=== PATIENT | female | born 1970 | race African-American/Black ===

== ENCOUNTER 2017-01-27 23:31 | Emergency (ER) | payer SELFPAY ==
[~2017-01-27] VITALS: Ht 167.6 cm; Wt 83.0 kg
[~2017-01-27 23:31] MED LIST: ACETAMINOPHEN-1 EAC1 ORAL; ALBUTEROL SULF8.5 GM INH; IBUPROFEN600 MG ORAL; TAMIFLU75 MG ORAL
[2017-01-27 23:45] VITALS: BP 138/90
[2017-01-27] MEDS ORDERED: Morphine Sulfate 4mg/ml Inj IVP ONE (23:45)
--- NOTE | 2017-01-27 23:48 | Emergency Room Report ---
History of Present Illness General Chief Complaint: Chest Pain Source: Patient Present Illness HPI Is a 46-year-old female with no past medical history. She presents with chief complaint of epigastric pain. Onset this afternoon. Multiple episode vomiting. No radiation. Unable to keep anything down. No diarrhea. Sharp cramping pain. This occur after eating lunch. Never had this problem before. No exertional component. No diaphoresis. No shortness of breath. Allergies: Coded Allergies: No Known Allergies (Unverified , 05/26/15) Patient History Past Medical History: none, see triage record, old chart reviewed Pertinent Family History: none Social History: Denies: smoking Last Menstrual Period: LAST MONTH Now: No Immunizations: other Reviewed Nursing Documentation: PMH: Agreed, PSxH: Agreed Nursing Documentation-PMH Hx Asthma: Yes Review of Systems Eye: Denies: eye pain, blurred vision ENT: Denies: ear pain, nose congestion, throat swelling Respiratory: Denies: cough, shortness of breath Cardiovascular: Reports: chest pain, Denies: palpitations Gastrointestinal: Denies: abdominal pain, diarrhea, nausea, vomiting Musculoskeletal: Denies: back pain, joint pain Skin: Denies: rash Neurological: Denies: headache, numbness Endocrine: Denies: increased thirst, increased urine Hematologic/Lymphatic: Denies: easy bruising All Other Systems: negative except mentioned in HPI Physical Exam Vital Signs Date Time Temp Pulse Resp B/P (MAP) Pulse Ox O2 Delivery O2 Flow Rate FiO2 01/27/17 23:41 99.0 76 29 138/90 96 Room Air vitals normal Sp02 EP Interpretation: reviewed, normal General Appearance: well appearing, no apparent distress, alert Head: normocephalic, atraumatic Eyes: bilateral eye PERRL, bilateral eye EOMI ENT: hearing grossly normal, normal pharynx Neck: full range of motion, supple, no meningismus Respiratory: chest non-tender, lungs clear, normal breath sounds Cardiovascular #1: regular rate, rhythm, no murmur Gastrointestinal: non tender, no mass, no organomegaly, no bruit, non-distended , decreased bowel sounds Musculoskeletal: back normal, gait/station normal, normal range of motion Psychiatric: mood/affect normal Skin: warm/dry Medical Decision Making Diagnostic Impression: Primary Impression: Abdominal pain Qualified Codes: R10.13 - Epigastric pain Additional Impressions: Vomiting Qualified Codes: R11.2 - Nausea with vomiting, unspecified UTI (urinary tract infection) Qualified Codes: N30.00 - Acute cystitis without hematuria ER Course Patient with epigastric pain and vomiting. No evidence of ACS, PE, dissection. Most likely a viral gastroenteritis. Could be food poisoning. No evidence of acute abdomen. No evidence of her upper quadrant pain. Doubt gallstone. Lab Results Impression labs unremarkable EKG Diagnostic Results EKG Time: 23:48 Rate: normal Rhythm: NSR ST Segments: no acute changes Rhythm Strip Diag. Results Rhythm Strip Time: 23:47 EP Interpretation: yes Rate: 67 Rhythm: NSR, no PVC's, no ectopy Chest X-Ray Diagnostic Results Chest X-Ray Diagnostic Results : Chest X-Ray Ordered: Yes # of Views/Limited/Complete: 1 View Indication: Chest Pain EP Interpretation: Yes Interpretation: no consolidation, no effusion, no pneumothorax Impression: No acute disease Electronically Signed by: Electronically signed by Ravindra Thomas MD Last Vital Signs Date Time Temp Pulse Resp B/P (MAP) Pulse Ox O2 Delivery O2 Flow Rate FiO2 01/27/17 23:41 99.0 76 29 138/90 96 Room Air Status: improved Disposition: HOME, SELF-CARE Condition: Stable Scripts Ondansetron Odt* (ZOFRAN ODT*) 4 Mg Tab.rapdis 4 MG ORAL Q6H Y for Nausea & Vomiting, #5 TAB 0 Refills Prov: RAVINDRA THOMAS M.D. 01/28/17 Nitrofurantoin Monohyd/M-Cryst (Nitrofurantoin [place]-Mcr 100 mg) 100 Mg Capsule 100 MG ORAL Q12H, #14 CAP Prov: RAVINDRA THOMAS M.D. 01/28/17 Additional Instructions: Followup with your DrFrantz in 2 to 3 days. Return if worse. RAVINDRA THOMAS M.D. Jan 27, 2017 23:48
[2017-01-28 00:09] LABS: BASOPHILS % (AUTO) 1.3 % (0.0-2.0); EOSINOPHILS % (AUTO) 2.1 % (0.0-3.0); LYMPHOCYTES % (AUTO) 34.7 % (20.0-45.0); MEAN CORPUSCULAR HEMOGLOBIN 28.3 PG (27.0-31.0); MEAN CORPUSCULAR HGB CONC 31.4 G/DL (32.0-36.0); MEAN CORPUSCULAR VOLUME 90 FL (80-99); MEAN PLATELET VOLUME 8.8 FL (6.5-10.1); MONOCYTES % (AUTO) 6.6 % (1.0-10.0); NEUTROPHILS % (AUTO) 55.3 % (45.0-75.0); PLATELET COUNT 194 K/UL (150-450); RED BLOOD COUNT 4.96 M/UL (4.20-5.40); RED CELL DISTRIBUTION WIDTH 12.5 % (11.6-14.8); WHITE BLOOD COUNT 6.8 K/UL (4.8-10.8)
[2017-01-28 00:33] LABS: APPEARANCE,URINE SLIGHTLY CLOUDY; KETONES,URINE NEGATIVE (NEGATIVE); LEUKOCYTE ESTERASE ,URINE NEGATIVE (NEGATIVE); NITRITE,URINE POSITIVE (NEGATIVE); PH,URINE 6 (4.5-8.0); PROTEIN,URINE NEGATIVE (NEGATIVE); UROBILINOGEN,URINE NORMAL MG/DL (0.0-1.0)
[2017-01-28 00:42] LABS: ALANINE AMINOTRANSFERASE 13 U/L (12-78); ALBUMIN/GLOBULIN RATIO 0.9 (1.0-2.7); ANION GAP 12 (5-15); ASPARTATE AMINO TRANSFERASE 14 U/L (15-37); CALCIUM 9.6 MG/DL (8.5-10.1); CARBON DIOXIDE 24 MMOL/L (21-32); CHLORIDE 99 MMOL/L (98-107); CKMB < 0.5 NG/ML (0.0-3.6); CREATININE 0.8 MG/DL (0.55-1.30); GLOMERULAR FILTRATION RATE > 60 mL/min (>60); LIPASE 57 U/L (73-393); POTASSIUM 3.3 MMOL/L (3.5-5.1); SODIUM 134 MMOL/L (136-145); TOTAL PROTEIN 8.3 G/DL (6.4-8.2)
[2017-01-28 01:26] LABS: SQUAMOUS EPITHELIAL CELL,UR MODERATE /LPF (NONE/OCC)
[2017-01-28 01:27] LABS: BACTERIA,URINE MANY /HPF
[2017-01-28] MEDS ORDERED: cefTRIAXone 1 GM in NS 55 ML IVPB ONE (01:30)
[2017-01-28 01:45] VITALS: BP 130/80
[2017-01-28] MEDS ORDERED: MACROBID100 MG ORAL (01:54)
[2017-01-28] MEDS ORDERED: ZOFRAN ODT4 MG ORAL (01:54)
[2017-01-28 02:10] VITALS: BP 125/75
--- NOTE | 2017-01-28 12:26 | Diagnostic Imaging Report ---
Indication: Chest pain Technique: One view of the chest Comparison: none Findings: Lungs and pleural spaces are clear. Heart size is normal. Impression: No acute process
--- NOTE | 2017-01-28 22:56 | Cardiology Report ---
APPROVED REPORT EKG Measurement Heart [id number] Normal sinus rhythm Normal ECG
== END 2017-01-28 02:10 | disposition home or self-care (01) ==
LOC: EMR 23:55
DX: R10.13 Epigastric pain (principal); R11.10 Vomiting, unspecified; N39.0 Urinary tract infection, site not specified
CPT/HCPCS: 36415; 71010; 80053; 81003; 81025; 82550; 82553; 83690; 84484; 85025; 87086; 87181; 93005; 96361; 96365; 96375; 99284; J0696; J2270; J2405

== ENCOUNTER 2018-12-01 04:35 | Inpatient (IN) | payer MEDICAID ==
[~2018-12-01] VITALS: Ht 167.6 cm; Wt 81.6 kg
[~2018-12-01 04:35] MED LIST changes: +MACROBID100 MG ORAL; +ZOFRAN ODT4 MG ORAL
[2018-12-01] MEDS ORDERED: Isovue-300 100ml vial INJ PRN (04:45)
[2018-12-01] MEDS ORDERED: Metoclopramide 10mg/2ml Inj IVP ONE (04:45)
--- NOTE | 2018-12-01 04:50 | Emergency Room Report ---
History of Present Illness General Chief Complaint: Abdominal Pain Source: Patient Present Illness HPI 48-year-old female presents with right upper quadrant pain that started 24 hours prior to arrival currently she is been having this ongoing pain for the past month, patient states that it seems to be worse with food alleviated by not eating, she endorses nausea vomiting, she states the pain is sharp in nature moderate severity, lasting hours, no fevers chills cough congestion chest pain shortness of breath. She presents for evaluation Allergies: Coded Allergies: No Known Allergies (Unverified , 05/26/15) Patient History Past Medical History: see triage record Last Menstrual Period: 11/06/18 Now: No Reviewed Nursing Documentation: PMH: Agreed; PSxH: Agreed Nursing Documentation-PMH Past Medical History: No History, Except For Hx Asthma: Yes Review of Systems All Other Systems: negative except mentioned in HPI Physical Exam Vital Signs Date Time Temp Pulse Resp B/P (MAP) Pulse Ox O2 Delivery O2 Flow Rate FiO2 12/01/18 04:36 97.5 73 18 153/91 (111) 96 Room Air Sp02 EP Interpretation: reviewed, normal General Appearance: well appearing, no apparent distress, alert Head: normocephalic, atraumatic Eyes: bilateral eye PERRL, bilateral eye EOMI ENT: uvula midline, moist mucus membranes Neck: supple, thyroid normal, supple/symm/no masses Respiratory: lungs clear, no respiratory distress, no retraction, no accessory muscle use Cardiovascular #1: normal peripheral pulses, regular rate, rhythm, no edema, no gallop, no murmur Gastrointestinal: soft, no guarding, no rebound, tenderness - Tenderness to palpation right upper quadrant Musculoskeletal: normal inspection Neurologic: alert, oriented x3 Psychiatric: mood/affect normal Skin: no rash, warm/dry Medical Decision Making Diagnostic Impression: Primary Impression: Acute cholecystitis ER Course Patient presents with RUQ pain, concerning for biliary colic, vs cholecystitis Patient with thickened gallbladder wall, perichol fluid, + murphys Zosyn started, patient admitted for management for acute cholecystitis Laboratory Tests Test 12/01/18 04:50 White Blood Count 7.3 K/UL (4.8-10.8) Red Blood Count 4.88 M/UL (4.20-5.40) Hemoglobin 14.3 G/DL (12.0-16.0) Hematocrit 43.0 % (37.0-47.0) Mean Corpuscular Volume 88 FL (80-99) Mean Corpuscular Hemoglobin 29.2 PG (27.0-31.0) Mean Corpuscular Hemoglobin Concent 33.2 G/DL (32.0-36.0) Red Cell Distribution Width 12.8 % (11.6-14.8) Platelet Count 204 K/UL (150-450) Mean Platelet Volume 8.9 FL (6.5-10.1) Neutrophils (%) (Auto) 52.2 % (45.0-75.0) Lymphocytes (%) (Auto) 37.3 % (20.0-45.0) Monocytes (%) (Auto) 6.9 % (1.0-10.0) Eosinophils (%) (Auto) 2.4 % (0.0-3.0) Basophils (%) (Auto) 1.1 % (0.0-2.0) Urine Color Yellow Urine Appearance Clear Urine pH 5 (4.5-8.0) Urine Specific [place] 1.030 (1.005-1.035) Urine Protein 1+ (NEGATIVE) H Urine Glucose (UA) Negative (NEGATIVE) Urine Ketones 1+ (NEGATIVE) H Urine Blood 3+ (NEGATIVE) H Urine Nitrite Negative (NEGATIVE) Urine Bilirubin Negative (NEGATIVE) Urine Urobilinogen 1 MG/DL (0.0-1.0) H Urine Leukocyte Esterase Negative (NEGATIVE) Urine RBC 2-4 /HPF (0 - 2) H Urine WBC 0-2 /HPF (0 - 2) Urine Squamous Epithelial Cells Moderate /LPF (NONE/OCC) H Urine Bacteria Few /HPF (NONE) Urine HCG, Qualitative Negative (NEGATIVE) Sodium Level 140 MMOL/L (136-145) Potassium Level 3.3 MMOL/L (3.5-5.1) L Chloride Level 106 MMOL/L (98-107) Carbon Dioxide Level 25 MMOL/L (21-32) Anion Gap 9 mmol/L (5-15) Blood Urea Nitrogen 9 mg/dL (7-18) Creatinine 0.7 MG/DL (0.55-1.30) Estimate Glomerular Filtration Rate > 60 mL/min (>60) Glucose Level 173 MG/DL (74-106) H Calcium Level 9.4 MG/DL (8.5-10.1) Total Bilirubin 0.9 MG/DL (0.2-1.0) Aspartate Amino Transferase (AST) 16 U/L (15-37) Alanine Aminotransferase (ALT) 23 U/L (12-78) Alkaline Phosphatase 57 U/L (46-116) Troponin I 0.000 ng/mL (0.000-0.056) Total Protein 7.8 G/DL (6.4-8.2) Albumin 3.9 G/DL (3.4-5.0) Globulin 3.9 g/dL Albumin/Globulin Ratio 1.0 (1.0-2.7) Lipase 48 U/L (73-393) L Urine Opiates Screen Negative (NEGATIVE) Urine Barbiturates Screen Negative (NEGATIVE) Phencyclidine (PCP) Screen Negative (NEGATIVE) Urine Amphetamines Screen Negative (NEGATIVE) Urine Benzodiazepines Screen Negative (NEGATIVE) Urine Cocaine Screen Negative (NEGATIVE) Urine Marijuana (THC) Screen Negative (NEGATIVE) EKG Diagnostic Results EKG Time: 04:56 EP Interpretation: Sinus bradycardia, rate 58, QTc 418, no acute ST elevations , normal axis Rate: bradycardiac Rhythm: other - Sinus bradycardia ST Segments: no acute changes Rhythm Strip Diag. Results Rhythm Strip Time: 06:52 EP Interpretation: yes Rate: 62 Rhythm: NSR, no PVC's, no ectopy Last Vital Signs Date Time Temp Pulse Resp B/P (MAP) Pulse Ox O2 Delivery O2 Flow Rate FiO2 12/01/18 04:36 97.5 73 18 153/91 (111) 96 Room Air Disposition: ADMITTED INPATIENT Condition: Stable Asim Russell MD Dec 01, 2018 04:50
[2018-12-01 04:55] VITALS: BP 153/91
--- NOTE | 2018-12-01 04:55 | NUR ---
ER Nurse Note: Pt came from home c/o RUQ pain since 11/30. Pt stated she had pain for "a while" but worse yesterday. Pt complans of 10/10 sharp RUQ pain, worse on palpation and worse after eating. Pt actively vomiting at bedside; emesis yellow and clear. Provided ruine; collected all labs and sent to lab. SLIV to RT AC; patent. Will continue to [facility].
[2018-12-01 05:15] LABS: BASOPHILS % (AUTO) 1.1 % (0.0-2.0); EOSINOPHILS % (AUTO) 2.4 % (0.0-3.0); HEMOGLOBIN 14.3 G/DL (12.0-16.0); LYMPHOCYTES % (AUTO) 37.3 % (20.0-45.0); MEAN CORPUSCULAR VOLUME 88 FL (80-99); MONOCYTES % (AUTO) 6.9 % (1.0-10.0); NEUTROPHILS % (AUTO) 52.2 % (45.0-75.0); PLATELET COUNT 204 K/UL (150-450); RED BLOOD COUNT 4.88 M/UL (4.20-5.40); RED CELL DISTRIBUTION WIDTH 12.8 % (11.6-14.8); WHITE BLOOD COUNT 7.3 K/UL (4.8-10.8)
[2018-12-01 05:27] LABS: APPEARANCE,URINE CLEAR; BILIRUBIN, URINE NEGATIVE (NEGATIVE); GLUCOSE, URINE (UA) NEGATIVE (NEGATIVE); KETONES,URINE 1+ (NEGATIVE); LEUKOCYTE ESTERASE ,URINE NEGATIVE (NEGATIVE); NITRITE,URINE NEGATIVE (NEGATIVE); PH,URINE 5 (4.5-8.0); PROTEIN,URINE 1+ (NEGATIVE); UROBILINOGEN,URINE 1 MG/DL (0.0-1.0)
[2018-12-01 05:30] LABS: ANION GAP 9 mmol/L (5-15); BLOOD UREA NITROGEN 9 mg/dL (7-18); CALCIUM 9.4 MG/DL (8.5-10.1); CARBON DIOXIDE 25 MMOL/L (21-32); CHLORIDE 106 MMOL/L (98-107); CREATININE 0.7 MG/DL (0.55-1.30); POTASSIUM 3.3 MMOL/L (3.5-5.1); SODIUM 140 MMOL/L (136-145)
[2018-12-01 05:35] LABS: ALANINE AMINOTRANSFERASE 23 U/L (12-78); ALBUMIN 3.9 G/DL (3.4-5.0); ALKALINE PHOSPHATASE 57 U/L (46-116); ASPARTATE AMINO TRANSFERASE 16 U/L (15-37); BILIRUBIN,TOTAL 0.9 MG/DL (0.2-1.0)
[2018-12-01 05:40] LABS: COLOR,URINE YELLOW
[2018-12-01] MEDS ORDERED: fentaNYL 100 mcg/2 mL IV ONE (05:45)
--- NOTE | 2018-12-01 05:59 | NUR ---
ER Nurse Note: All orders completed per ERMD orders. Pt in ultrasound.
[2018-12-01 06:00] VITALS: BP 110/84
--- NOTE | 2018-12-01 06:42 | NUR ---
ER Nurse Note: Pt came back from US.
[2018-12-01] MEDS ORDERED: Piperacillin/Tazobactam 3.375 GM in NS 110 ML IVPB ONE (06:45)
--- NOTE | 2018-12-01 06:51 | Diagnostic Imaging Report ---
Indication: Abdominal pain x2 months Technique: Holland-scale and duplex images of the upper abdomen were obtained Comparison: Findings: Gallbladder demonstrates gallstones and sludge. There is mild gallbladder wall thickening and trace pericholecystic fluid. Sonographic Bhatt's sign is equivocal. Common bile duct measures 5 mm in diameter. No intrahepatic biliary ductal dilatation. Liver demonstrates normal echogenicity, no focal abnormality. Portal vein and hepatic veins are patent. Pancreas is unremarkable. Spleen is unremarkable. Left kidney measures 11.1 cm in length. Right kidney measures 10.6 cm length. Both kidneys demonstrate normal echogenicity. There is no hydronephrosis. No focal abnormality there is a small cyst in the left upper pole. Non-aneurysmal abdominal aorta . Impression: Cholelithiasis. Gallbladder wall thickening and pericholecystic fluid raise concern for acute cholecystitis. Chronic and clinical findings, consider hepatobiliary nuclear scan if there is high clinical suspicion No other acute or significant abnormality Incidental finding left renal cyst This agrees with the preliminary interpretation [facility].
--- NOTE | 2018-12-01 07:00 | NUR ---
ER Nurse Note: All orders completed per ERMD orders. Pt infusing antibiotic in RT AC. Pt a&ox4, VSS, stable. All safety measures met; will endorse to oncoming shift for continuity of care.
[2018-12-01 07:19] VITALS: BP 137/109
--- NOTE | 2018-12-01 07:22 | NUR ---
ED Nurse Note: resumed care pt awake alert on monitor and her cell phone . boyfriend coming to picker tender her car and belongings.pt denies taking any meds at home or hospitalization in the past 30 days.Awaiting floor bed.
--- NOTE | 2018-12-01 08:10 | NUR ---
ED Nurse Note: called floor for report was told call back in 15 min. er charge informed.
--- NOTE | 2018-12-01 08:29 | NUR ---
NURSE NOTES: received report from ER, THIAGO Berrios. patient will be admitted to [facility] under Marita BALLESTEROS. dx with Cholecystitis.
--- NOTE | 2018-12-01 10:06 | NUR ---
Receptionist/Telephone OperatorOrder Dispatcher 48 Y/O Female from Home CC: Abd pain x 1 hour with N/V SI: Cholecystitis VS: BP: 153/91 HR: 73 RR 18 02 Sat 96% (RA) T: 97.6 NT: UR RBC 2-4 UR Protein 1+ UR Ketones 1+ UR Squamous EPI Moderate Potassium 3.3 Glucose Random 173 Lipase 48 ABD US: The gallbladder is distended with multiple large shadowing stones and sludge. Possible minimal pericholecystic fluid. Negative Bhatt's sign. Findings are equivocal for acute cholecystitis. No hydronephrosis. IS: Reglan 10mg IVP NS 1000ml IV Fentanyl 50mcg IV Zosyn 3.375GM IVPB Admitted to MedSurg MedSurg status DCP: Pending Hospital Stay
--- NOTE | 2018-12-01 10:28 | History & Physical ---
History and Physical History & Physicial seen and examined. Full Dictation completed on 1022 hours Lucero Kirkland MD Dec 01, 2018 10:28
[2018-12-01] MEDS ORDERED: traMADol 50mg tab ORAL PRN (11:30)
--- NOTE | 2018-12-01 11:30 | NUR ---
NURSE NOTES: seen by Dr. paula. no further procedure at this time. start low fat diet if pain is control. order noted and carried out.
[2018-12-01] MEDS ORDERED: Morphine Sulfate 2mg/ml Inj(IV/IM USE ONLY) IVP PRN (11:45)
[2018-12-01] MEDS: Morphine Sulfate 2mg/ml Inj(IV/IM USE ONLY) IVP PRN ×3 (11:56→20:32)
[2018-12-01 12:00] VITALS: BP 133/86
[2018-12-01] MEDS: D5NS 1,000 ML IV SCH ×2 (12:37→21:45)
[2018-12-01] MEDS: Piperacillin/Tazobactam 3.375 GM in NS 110 ML IVPB SCH ×2 (13:59→22:20)
[2018-12-01] MEDS ORDERED: Sterile Water Irrig 1000ml IRRIG ONE (14:00)
[2018-12-01] MEDS ORDERED: LR 1000ml ONE (14:00)
--- NOTE | 2018-12-01 14:38 | Consultation ---
History of Present Illness General Date patient seen: Dec 01, 2018 Reason for Hospitalization: Abdominal Pain Present Illness HPI 48F 1 day RUQ abd pain. states prior 1 year ago and intermittent since. last night much worse with associated n/v. no radiation. came to ED for evaluation. labs nml. US with cholelithiasis. surgery called to evaluate. Allergies: Coded Allergies: No Known Allergies (Unverified , 05/26/15) Medication History Scheduled Albuterol Sulfate* (Albuterol Sulfate Mdi*), 2 PUFF INH Q4H, (Reported) Nitrofurantoin Monohyd/M-Cryst (Nitrofurantoin [place]-Mcr 100 mg), 100 MG ORAL Q12H Scheduled PRN Acetaminophen With Codeine (T#3) (Tylenol #3 Tab*), 1 TAB ORAL Q8H PRN for For Pain Ibuprofen* (Motrin*), 600 MG ORAL Q8H PRN for For Pain Ondansetron Odt* (Zofran Odt*), 4 MG ORAL Q6H PRN for Nausea & Vomiting Patient History History Provided By: Patient Healthcare decision maker SELF Resuscitation status Advanced Directive on File Past Medical/Surgical History Past Medical/Surgical History: (1) Viral syndrome (2) Acute cholecystitis Review of Systems Review of Symptoms General ROS: no weight loss or fever Psychological ROS: no depression or mood changes, no memory loss Ophthalmic ROS: no visual changes or eye irritation ENT ROS: no nasal congestion, hearing loss, dizziness Allergy and Immunology ROS: no allergic symptoms or urticaria Hematological and Lymphatic ROS: no swollen glands, unusual bleeding or bruising Endocrine ROS: no polyuria, polydipsia, weight changes, temperature intolerance Respiratory ROS: no cough, shortness of breath, or wheezing Cardiovascular ROS: no chest pain or dyspnea on exertion Gastrointestinal ROS: abdominal pain, no bright red blood in stool. Musculoskeletal ROS: no myalgias or arthralgias Neurological ROS: no TIA or stroke symptoms Dermatological ROS: no new or changing skin lesions, rashes or pruritis Physical Exam Physical Exam General appearance: alert, cooperative, no distress, appears stated age Head: Normocephalic, without obvious abnormality, atraumatic Eyes: conjunctivae/corneas clear. PERRL, EOM's intact. Fundi benign Throat: Lips, mucosa, and tongue normal. Teeth and gums normal Neck: supple, symmetrical, trachea midline, no adenopathy, thyroid: not enlarged, symmetric, no tenderness/mass/nodules, no carotid bruit and no JVD Lungs: clear to auscultation bilaterally Heart: regular rate and rhythm, S1, S2 normal, no murmur, click, rub or gallop Abdomen: soft, non-tender. Bowel sounds normal. No masses, no organomegaly Extremities: extremities normal, atraumatic, no cyanosis or edema Pulses: 2+ and symmetric Skin: Skin color, texture, turgor normal. No rashes or lesions Neurologic: Grossly normal Last 24 Hour Vital Signs Date Time Temp Pulse Resp B/P (MAP) Pulse Ox O2 Delivery O2 Flow Rate FiO2 12/01/18 12:00 98.6 64 17 133/86 (102) 98 12/01/18 10:20 Room Air 12/01/18 08:08 97.5 63 18 137/109 100 Room Air 12/01/18 07:19 97.5 63 18 137/109 100 Room Air 12/01/18 06:41 97.5 12/01/18 06:00 97.5 84 18 110/84 99 Room Air 12/01/18 04:55 73 18 Room Air 12/01/18 04:55 97.5 78 18 153/91 96 Room Air 12/01/18 04:36 97.5 73 18 153/91 (111) 96 Room Air Intake and Output 11/30/18 12/01/18 19:00 07:00 Intake Total 1000 ml Balance 1000 ml Intake IV Total 1000 ml Laboratory Tests Test 12/01/18 04:50 White Blood Count 7.3 K/UL (4.8-10.8) Red Blood Count 4.88 M/UL (4.20-5.40) Hemoglobin 14.3 G/DL (12.0-16.0) Hematocrit 43.0 % (37.0-47.0) Mean Corpuscular Volume 88 FL (80-99) Mean Corpuscular Hemoglobin 29.2 PG (27.0-31.0) Mean Corpuscular Hemoglobin Concent 33.2 G/DL (32.0-36.0) Red Cell Distribution Width 12.8 % (11.6-14.8) Platelet Count 204 K/UL (150-450) Mean Platelet Volume 8.9 FL (6.5-10.1) Neutrophils (%) (Auto) 52.2 % (45.0-75.0) Lymphocytes (%) (Auto) 37.3 % (20.0-45.0) Monocytes (%) (Auto) 6.9 % (1.0-10.0) Eosinophils (%) (Auto) 2.4 % (0.0-3.0) Basophils (%) (Auto) 1.1 % (0.0-2.0) Urine Color Yellow Urine Appearance Clear Urine pH 5 (4.5-8.0) Urine Specific [place] 1.030 (1.005-1.035) Urine Protein 1+ (NEGATIVE) H Urine Glucose (UA) Negative (NEGATIVE) Urine Ketones 1+ (NEGATIVE) H Urine Blood 3+ (NEGATIVE) H Urine Nitrite Negative (NEGATIVE) Urine Bilirubin Negative (NEGATIVE) Urine Urobilinogen 1 MG/DL (0.0-1.0) H Urine Leukocyte Esterase Negative (NEGATIVE) Urine RBC 2-4 /HPF (0 - 2) H Urine WBC 0-2 /HPF (0 - 2) Urine Squamous Epithelial Cells Moderate /LPF (NONE/OCC) H Urine Bacteria Few /HPF (NONE) Urine HCG, Qualitative Negative (NEGATIVE) Sodium Level 140 MMOL/L (136-145) Potassium Level 3.3 MMOL/L (3.5-5.1) L Chloride Level 106 MMOL/L (98-107) Carbon Dioxide Level 25 MMOL/L (21-32) Anion Gap 9 mmol/L (5-15) Blood Urea Nitrogen 9 mg/dL (7-18) Creatinine 0.7 MG/DL (0.55-1.30) Estimat Glomerular Filtration Rate > 60 mL/min (>60) Glucose Level 173 MG/DL (74-106) H Calcium Level 9.4 MG/DL (8.5-10.1) Total Bilirubin 0.9 MG/DL (0.2-1.0) Aspartate Amino Transf (AST/SGOT) 16 U/L (15-37) Alanine Aminotransferase (ALT/SGPT) 23 U/L (12-78) Alkaline Phosphatase 57 U/L (46-116) Troponin I 0.000 ng/mL (0.000-0.056) Total Protein 7.8 G/DL (6.4-8.2) Albumin 3.9 G/DL (3.4-5.0) Globulin 3.9 g/dL Albumin/Globulin Ratio 1.0 (1.0-2.7) Lipase 48 U/L (73-393) L Urine Opiates Screen Negative (NEGATIVE) Urine Barbiturates Screen Negative (NEGATIVE) Phencyclidine (PCP) Screen Negative (NEGATIVE) Urine Amphetamines Screen Negative (NEGATIVE) Urine Benzodiazepines Screen Negative (NEGATIVE) Urine Cocaine Screen Negative (NEGATIVE) Urine Marijuana (THC) Screen Negative (NEGATIVE) Height (Feet): 5 Height (Inches): 6.00 Weight (Pounds): 180 Medications Current Medications Medications (Trade) Dose Ordered Sig/Celso Route PRN Reason Start Time Stop Time Status Last Admin Dose Admin Acetaminophen (Tylenol) 650 mg Q4H PRN ORAL Mild Pain/Temp > 100.5 12/01/18 11:30 12/31/18 11:29 Dextrose/Sodium Chloride 1,000 ml @ 100 mls/hr Q10H IV 12/01/18 11:45 12/31/18 11:44 12/01/18 12:37 Heparin Sodium (Porcine) (Heparin 5000 units/ml) 5,000 units EVERY 12 HOURS SUBQ 12/01/18 21:00 12/31/18 20:59 Iopamidol (Isovue-300 100ml) 100 ml NOW PRN INJ Radiology Procedure 12/01/18 04:45 Morphine Sulfate (Morphine Sulfate) 2 mg Q4H PRN IVP SEVERE PAIN 12/01/18 12:00 12/08/18 11:44 12/01/18 11:56 Ondansetron HCl (Zofran) 4 mg Q4H PRN IVP Nausea & Vomiting 12/01/18 11:30 12/31/18 11:29 Pantoprazole (Protonix) 40 mg DAILY IVP 12/02/18 09:00 01/01/19 08:59 Piperacillin Sod/ Tazobactam Sod 3.375 gm/Sodium Chloride 110 ml @ 27.5 mls/hr EVERY 8 HOURS IVPB 12/01/18 14:00 12/06/18 13:59 12/01/18 13:59 Tramadol HCl (Ultram) 50 mg Q4H PRN ORAL moderate pain 12/01/18 11:30 12/08/18 11:29 Assessment/Plan Problem List: (1) Acute cholecystitis Assessment & Plan: 48 F acute uncomplicated cholecystitis vs biliary colic. afebrile, HD stable, no leukocytosis, lft's nml US with cholelithiasis. no GB thickening or perichole fluid exam without tenderness and no murphys. just discomfort no acute surgical intervention planned okay for diet as discomfort improves can plan for outpatient elective cholecystectomy which is recommended will need to see her PCP and referral to surgery to schedule thank you will follow with recs ICD Codes: K81.0 - Acute cholecystitis SNOMED: [id number] Glen Duke Dec 01, 2018 14:38
[2018-12-01 16:00] VITALS: BP 140/85
--- NOTE | 2018-12-01 17:30 | History and Physical Report ---
DATE OF ADMISSION: 12/01/2018 SOURCE OF INFORMATION: Patient and EMR. HISTORY OF PRESENT ILLNESS: The patient is a 48-year-old female with history of cholecystitis in the past. The patient reported acute onset of the right upper quadrant abdominal pain for the last one day. The patient came to the emergency room, and initial vital signs shows normal and stable vital signs. The patient denies current nausea. Denies any hemoptysis. Denies any abnormal bleeding. REVIEW OF SYSTEMS: All 14 elements of review of systems reviewed. PAST MEDICAL HISTORY: Including asthma. ALLERGIES: NKDA. MEDICATIONS: Current hospital medications including, but not limited to, albuterol and nitrofurantoin. FAMILY HISTORY: Reviewed and noncontributory. SOCIAL HISTORY: The patient denies history of illicit drug abuse, smoking, or alcohol abuse. The patient lives with her fiance. PHYSICAL EXAMINATION: VITAL SIGNS: Blood pressure 150/80, pulse oximetry 98% on room air, respiratory rate 18, and temperature 98.2. HEAD AND NECK: Atraumatic and normocephalic. CHEST: Clear to auscultation. HEART: S1, S2. Regular rate and rhythm. ABDOMEN: Positive for tenderness in the right upper , questionable rebound tenderness. NEUROLOGIC: Awake, alert, and oriented x3. LABORATORY DATA: Labs dated 12/01/2018 shows WBC 7.3. Sodium 140, potassium 3.3. Lipase 48. Glucose 173. Urinalysis shows 2 wbc's. ASSESSMENT: 1. Acute cholecystitis. 2. Asthma. 3. Abnormal blood glucose. 4. GI and DVT prophylaxes. PLAN OF CARE: The patient will be admitted to the medical floor with prophylactic antibiotic treatment. Surgeon, Dr. Duke, has been notified. Lucero Kirkland M.D. DR: DANNA JOB#: [id number] CC:
--- NOTE | 2018-12-01 18:51 | NUR ---
NURSE NOTES: patient said she is ready to eat. feel less pain. low fat diet as ordered.
--- NOTE | 2018-12-01 19:13 | NUR ---
HAND-OFF: Report given to THIAGO Carrion.
[2018-12-01 20:00] VITALS: BP 125/71
[2018-12-01] MEDS: Heparin 5000 units/ml inj SUBQ SCH (20:32)
[2018-12-02] VITALS (13 sets, daily range): BP systolic 106–136; BP diastolic 71–97
--- NOTE | 2018-12-02 02:26 | NUR ---
NURSE NOTES: Received report from THIAGO Bush. Patient A&Ox4. On room air, no signs of distress or labored breathing. IV intact, patent, and infusing IV fluids. Complains of pain. Will follow orders for pain management. Will continue with plan of care. Bed in lowest position with call light in reach.
[2018-12-02] MEDS: D5NS 1,000 ML IV SCH ×2 (05:56→17:47)
[2018-12-02] MEDS: Piperacillin/Tazobactam 3.375 GM in NS 110 ML IVPB SCH ×3 (05:56→21:17)
[2018-12-02] MEDS: Morphine Sulfate 2mg/ml Inj(IV/IM USE ONLY) IVP PRN ×3 (06:00→21:16)
[2018-12-02 06:22] LABS: BASOPHILS % (AUTO) 0.7 % (0.0-2.0); EOSINOPHILS % (AUTO) 0.1 % (0.0-3.0); HEMATOCRIT 40.8 % (37.0-47.0); HEMOGLOBIN 13.8 G/DL (12.0-16.0); LYMPHOCYTES % (AUTO) 8.4 % (20.0-45.0); MEAN CORPUSCULAR VOLUME 87 FL (80-99); MONOCYTES % (AUTO) 6.6 % (1.0-10.0); NEUTROPHILS % (AUTO) 84.2 % (45.0-75.0); PLATELET COUNT 195 K/UL (150-450); RED BLOOD COUNT 4.72 M/UL (4.20-5.40); RED CELL DISTRIBUTION WIDTH 12.6 % (11.6-14.8); WHITE BLOOD COUNT 13.1 K/UL (4.8-10.8)
[2018-12-02 07:09] LABS: ALANINE AMINOTRANSFERASE 20 U/L (12-78); ALBUMIN 3.3 G/DL (3.4-5.0); ALBUMIN/GLOBULIN RATIO 0.8 (1.0-2.7); ALKALINE PHOSPHATASE 45 U/L (46-116); ANION GAP 11 mmol/L (5-15); ASPARTATE AMINO TRANSFERASE 18 U/L (15-37); BILIRUBIN,TOTAL 1.5 MG/DL (0.2-1.0); BLOOD UREA NITROGEN 5 mg/dL (7-18); CALCIUM 8.7 MG/DL (8.5-10.1); CARBON DIOXIDE 23 MMOL/L (21-32); CHLORIDE 105 MMOL/L (98-107); CREATININE 0.7 MG/DL (0.55-1.30); POTASSIUM 3.4 MMOL/L (3.5-5.1); SODIUM 139 MMOL/L (136-145)
[2018-12-02 07:12] LABS: BILIRUBIN,DIRECT 0.3 MG/DL (0.0-0.3)
--- NOTE | 2018-12-02 08:04 | NUR ---
HAND-OFF: Report given to THIAGO Bush.
--- NOTE | 2018-12-02 08:15 | NUR ---
NURSE NOTES: received report from THIAGO Carrion. patient in bed. alert. oriented. verbally responsive. no respiratory distress noted. discomfort on adb area. no episode of vomiting this morning. nauseated. IV on RAC running d5ns 100/hr. bed in the lowest position. call light within reach. will continue to provide plan of care.
[2018-12-02] MEDS: Pantoprazole Inj IVP SCH (09:36)
[2018-12-02] MEDS: Heparin 5000 units/ml inj SUBQ SCH ×2 (09:38→21:30)
--- NOTE | 2018-12-02 10:00 | General Progress Note ---
Assessment/Plan Assessment/Plan: S: I am feeling better O: seems comfortable, mild nausea. PHYSICAL EXAMINATION:HEAD AND NECK: Atraumatic and normocephalic. CHEST: Clear to auscultation.HEART: S1, S2. Regular rate and rhythm. ABDOMEN: Positive for tenderness in the right upper quadrant, questionable rebound tenderness.NEUROLOGIC: Awake, alert, and oriented x3. LABORATORY DATA: Labs dated 12/01/2018 shows WBC 7.3. Sodium 140, potassium 3.3. Lipase 48. Glucose 173. Urinalysis shows 2 wbc's. Meds: reviewed an reconciled ASSESSMENT: 1. Acute cholecystitis. 2. Asthma. 3. Abnormal blood glucose. 4. GI and DVT prophylaxes. PLAN OF CARE: will follow up with surgeon Subjective Allergies: Coded Allergies: No Known Allergies (Unverified , 05/26/15) Objective Last 24 Hour Vital Signs Date Time Temp Pulse Resp B/P (MAP) Pulse Ox O2 Delivery O2 Flow Rate FiO2 12/02/18 04:00 97.3 83 17 135/96 (109) 97 12/02/18 00:00 98.6 82 18 136/97 (110) 97 12/01/18 21:00 Room Air 12/01/18 20:00 98.7 78 17 125/71 (89) 97 12/01/18 16:00 97.9 68 17 140/85 (103) 96 12/01/18 12:00 98.6 64 17 133/86 (102) 98 12/01/18 10:20 Room Air Intake and Output 12/01/18 12/02/18 18:59 06:59 Intake Total 1690.0 ml 100 ml Output Total 30 ml Balance 1660.0 ml 100 ml Intake Oral 480 ml IV Total 1210.0 ml 100 ml Output Emesis 30 ml # Voids 3 3 Laboratory Tests 12/02/18 05:45: White Blood Count 13.1#H, Red Blood Count 4.72, Hemoglobin 13.8, Hematocrit 40.8 , Mean Corpuscular Volume 87, Mean Corpuscular Hemoglobin 29.4, Mean Corpuscular Hemoglobin Concent 33.9, Red Cell Distribution Width 12.6, Platelet Count 195, Mean Platelet Volume 9.0, Neutrophils (%) (Auto) 84.2H, Lymphocytes ( %) (Auto) 8.4L, Monocytes (%) (Auto) 6.6, Eosinophils (%) (Auto) 0.1, Basophils (%) (Auto) 0.7, Sodium Level 139, Potassium Level 3.4L, Chloride Level 105, Carbon Dioxide Level 23, Anion Gap 11, Blood Urea Nitrogen 5L, Creatinine 0.7, Estimat Glomerular Filtration Rate > 60, Glucose Level 170H, Calcium Level 8.7, Total Bilirubin 1.5H, Direct Bilirubin 0.3, Aspartate Amino Transf (AST/SGOT) 18 , Alanine Aminotransferase (ALT/SGPT) 20, Alkaline Phosphatase 45L, Total Protein 7.5, Albumin 3.3L, Globulin 4.2, Albumin/Globulin Ratio 0.8L Height (Feet): 5 Height (Inches): 6.00 Weight (Pounds): 180 Lucero Kirkland MD Dec 02, 2018 10:00
--- NOTE | 2018-12-02 10:53 | NUR ---
NURSE NOTES: patient WBC 13.1, potassium 3.4, total bilirubin 1.5. bp126/84, HR75,98%, RR18, T 100.9 . notified janice Thomas received order cancel DC and consult with ID. order noted and carried out.
--- NOTE | 2018-12-02 11:48 | NUR ---
NURSE NOTES: received order from Dr. Kirkland and ID consult with DR. Sanches. order noted and carried out.
--- NOTE | 2018-12-02 13:32 | Pre-Procedure Note/Attestation ---
Pre-Procedure Note/Attestation Complete Prior to Procedure Planned Procedure: not applicable Procedure Narrative: laparoscopic cholecystectomy possible open Indications for Procedure Pre-Operative Diagnosis: acute cholecystitis Attestation I attest that I discussed the nature of the procedure; its benefits; risks and complications; and alternatives (and the risks and benefits of such alternatives ), prior to the procedure, with the patient (or the patient's legal home office representative). I attest that, if there was a reasonable possibility of needing a blood transfusion, the patient (or the patient's legal home office representative) was given the [facility] standardized written summary, pursuant to the [employer] Blood Safety Act ([place] Health and Safety Code # 1645, as amended). I attest that I re-evaluated the patient just prior to the surgery and that there has been no change in the patient's H&P, except as documented below: Glen Duke Dec 02, 2018 13:32
--- NOTE | 2018-12-02 13:43 | NUR ---
NURSE NOTES: patient left unit for laparoscopic cholecystectomy by nilsa Thomas. consent signed. IV on RAC 18g intact. NPO midnight. notified surgical nurse patient has a fever 101 @1320. notified sujatha patient got heparin this morning as ordered. vs stable.
[2018-12-02] MEDS ORDERED: Iothalamate Meglumine 60% 30ML INJ ONE (13:49)
[2018-12-02] MEDS ORDERED: Lidocaine 1% 10mg/ml/Epi 0.005mg/ml 30ml vial INJ ONE (13:49)
[2018-12-02] MEDS ORDERED: fentaNYL 100 mcg/2 mL IV ONE ×2 (13:50→14:51)
[2018-12-02] MEDS ORDERED: Midazolam 2mg/2ml Inj ONE (13:51)
[2018-12-02] MEDS ORDERED: Zemuron 50mg/5ml Inj IV ONE (13:51)
--- NOTE | 2018-12-02 13:53 | Infectious Diseases Prog Note ---
Assessment/Plan Problems: (1) Acute cholecystitis Assessment & Plan: continue zosyn pending surgical resection of the gall bladder , monitor LFT (2) Sepsis Assessment & Plan: suspect due to the above, continue zosyn, . will send blood culture x2 (3) Abdominal pain Assessment & Plan: due to the above, continue pain management as per primary (4) Fever Assessment & Plan: while on zosyn , may need cholecystectomy for source control , will send blood culture , continue tylenol as needed Subjective Allergies: Coded Allergies: No Known Allergies (Unverified , 05/26/15) Objective Vital Signs Last 24 Hour Vital Signs Date Time Temp Pulse Resp B/P (MAP) Pulse Ox O2 Delivery O2 Flow Rate FiO2 12/02/18 13:06 101.0 12/02/18 12:00 100.9 89 18 133/84 (100) 98 12/02/18 09:00 Room Air 12/02/18 08:00 100.9 75 18 126/84 (98) 98 12/02/18 04:00 97.3 83 17 135/96 (109) 97 12/02/18 00:00 98.6 82 18 136/97 (110) 97 12/01/18 21:00 Room Air 12/01/18 20:00 98.7 78 17 125/71 (89) 97 12/01/18 16:00 97.9 68 17 140/85 (103) 96 Height (Feet): 5 Height (Inches): 6.00 Weight (Pounds): 180 Laboratory Tests Test 12/02/18 05:45 White Blood Count 13.1 K/UL (4.8-10.8) #H Red Blood Count 4.72 M/UL (4.20-5.40) Hemoglobin 13.8 G/DL (12.0-16.0) Hematocrit 40.8 % (37.0-47.0) Mean Corpuscular Volume 87 FL (80-99) Mean Corpuscular Hemoglobin 29.4 PG (27.0-31.0) Mean Corpuscular Hemoglobin Concent 33.9 G/DL (32.0-36.0) Red Cell Distribution Width 12.6 % (11.6-14.8) Platelet Count 195 K/UL (150-450) Mean Platelet Volume 9.0 FL (6.5-10.1) Neutrophils (%) (Auto) 84.2 % (45.0-75.0) H Lymphocytes (%) (Auto) 8.4 % (20.0-45.0) L Monocytes (%) (Auto) 6.6 % (1.0-10.0) Eosinophils (%) (Auto) 0.1 % (0.0-3.0) Basophils (%) (Auto) 0.7 % (0.0-2.0) Sodium Level 139 MMOL/L (136-145) Potassium Level 3.4 MMOL/L (3.5-5.1) L Chloride Level 105 MMOL/L (98-107) Carbon Dioxide Level 23 MMOL/L (21-32) Anion Gap 11 mmol/L (5-15) Blood Urea Nitrogen 5 mg/dL (7-18) L Creatinine 0.7 MG/DL (0.55-1.30) Estimat Glomerular Filtration Rate > 60 mL/min (>60) Glucose Level 170 MG/DL (74-106) H Calcium Level 8.7 MG/DL (8.5-10.1) Total Bilirubin 1.5 MG/DL (0.2-1.0) H Direct Bilirubin 0.3 MG/DL (0.0-0.3) Aspartate Amino Transf (AST/SGOT) 18 U/L (15-37) Alanine Aminotransferase (ALT/SGPT) 20 U/L (12-78) Alkaline Phosphatase 45 U/L (46-116) L Total Protein 7.5 G/DL (6.4-8.2) Albumin 3.3 G/DL (3.4-5.0) L Globulin 4.2 g/dL Albumin/Globulin Ratio 0.8 (1.0-2.7) L Current Medications Medications (Trade) Dose Ordered Sig/Celso Route PRN Reason Start Time Stop Time Status Last Admin Dose Admin Acetaminophen (Tylenol) 650 mg Q4H PRN ORAL Mild Pain/Temp > 100.5 12/01/18 11:30 12/31/18 11:29 12/02/18 12:36 Dextrose/Sodium Chloride 1,000 ml @ 100 mls/hr Q10H IV 12/01/18 11:45 12/31/18 11:44 12/02/18 05:56 Heparin Sodium (Porcine) (Heparin 5000 units/ml) 5,000 units EVERY 12 HOURS SUBQ 12/01/18 21:00 12/31/18 20:59 12/02/18 09:38 Iopamidol (Isovue-300 100ml) 100 ml NOW PRN INJ Radiology Procedure 12/01/18 04:45 Morphine Sulfate (Morphine Sulfate) 2 mg Q4H PRN IVP SEVERE PAIN 12/01/18 12:00 12/08/18 11:44 12/02/18 11:01 Ondansetron HCl (Zofran) 4 mg Q4H PRN IVP Nausea & Vomiting 12/01/18 11:30 12/31/18 11:29 12/02/18 06:00 Pantoprazole (Protonix) 40 mg DAILY IVP 12/02/18 09:00 01/01/19 08:59 12/02/18 09:36 Piperacillin Sod/ Tazobactam Sod 3.375 gm/Sodium Chloride 110 ml @ 27.5 mls/hr EVERY 8 HOURS IVPB 12/01/18 14:00 12/06/18 13:59 12/02/18 05:56 Potassium Chloride (K-Dur) 40 meq ONCE ORAL 12/02/18 18:00 12/02/18 19:00 Tramadol HCl (Ultram) 50 mg Q4H PRN ORAL moderate pain 12/01/18 11:30 12/08/18 11:29 Marium Sanches M.D. Dec 02, 2018 13:53
[2018-12-02] MEDS ORDERED: Lidocaine 1% MPF 10mg/ml 5ml ONE (14:20)
[2018-12-02] MEDS ORDERED: Propofol 200mg/20ml IV ONE (14:20)
[2018-12-02] MEDS ORDERED: Glycopyrrolate 0.2mg/ml 1ml Vial ONE ×2 (14:20→15:24)
[2018-12-02] MEDS ORDERED: NS Irrig 1000ml IRRIG ONE ×3 (14:20→15:29)
[2018-12-02] MEDS ORDERED: Metoclopramide 10mg/2ml Inj ONE (14:20)
[2018-12-02] MEDS ORDERED: Neostigmine 1mg/ml 10ml Inj ONE (14:20)
[2018-12-02] MEDS ORDERED: Ketorolac 30mg Inj ONE (14:50)
[2018-12-02] MEDS ORDERED: Surgicel 4in x 8in TOPIC ONE (15:28)
--- NOTE | 2018-12-02 15:43 | Brief Operative Note ---
Immediate Post Operative Note Operative Note Pre-op Diagnosis: acute cholecystitis Procedure: lap liza Post-op Diagnosis: acute cholecystitis Surgeon: nisa Anesthesiologist: katharine Anesthesia: general, local Specimen: yes Complications: none Condition: stable Fluids: see records Estimated Blood Loss: minimal Drains: none Implant(s) used?: No Glen Duke Dec 02, 2018 15:43
[2018-12-02] MEDS ORDERED: Metoclopramide 10mg/2ml Inj IVP PRN (15:45)
[2018-12-02] MEDS ORDERED: Milk of Magnesia 30ml Ud ORAL PRN (15:45)
[2018-12-02] MEDS ORDERED: HYDROcodone/Acetamin 5/325 tab ORAL PRN (15:45)
[2018-12-02] MEDS ORDERED: HYDROcodone/Acetamin 10/325 tab ORAL PRN (15:45)
[2018-12-02] MEDS ORDERED: Morphine Sulfate 2mg/ml Inj(IV/IM USE ONLY) IVP PRN (15:45)
[2018-12-02] MEDS ORDERED: Morphine Sulfate 4mg/ml Inj (IV USE ONLY) IVP PRN (15:47)
--- NOTE | 2018-12-02 15:49 | Immediate Post-Op Evaluation ---
Immediate Post-Op Evalulation Immediate Post-Op Evalulation Procedure: harrison liza Date of Evaluation: Dec 02, 2018 Time of Evaluation: 15:48 IV Fluids: 1300 Blood Products: 0 Estimated Blood Loss: 10 Urinary Output: 100 Blood Pressure Systolic: 116 Blood Pressure Diastolic: 73 Pulse Rate: 86 Respiratory Rate: 14 O2 Sat by Pulse Oximetry: 98 Temperature (Fahrenheit): 97.3 Nausea: No Vomiting: No Complications none Patient Status: awake, reacts, patent Hydration Status: adequate Drug: none Tianna Tello CRNA Dec 02, 2018 15:49
--- NOTE | 2018-12-02 15:50 | Anethesia Preoperative Eval ---
Anesthesia Pre-op PMH/ROS General Date of Evaluation: Dec 02, 2018 Time of Evaluation: 14:00 Anesthesiologist: david ASA Score: ASA 2 Mallampati Score Class I : Soft palate, uvula, fauces, pillars visible Class II: Soft palate, uvula, fauces visible Class III: Soft palate, base of uvula visible Class IV: Only hard plate visible Mallampati Classification: Class II Surgeon: nisa Diagnosis: cholecystitis Surgical Procedure: Lap Danielle Anesthesia History: none Family History: no anesthesia problems Allergies: Coded Allergies: No Known Allergies (Unverified , 05/26/15) Medications: see eMAR Patient NPO?: Yes NPO Date: Dec 02, 2018 NPO Time: 0000 Past Medical History Cardiovascular: Denies: HTN, CAD, LA, valve dz, arrhythmia, other Pulmonary: Denies: asthma, COPD, ODELL, other Gastrointestinal/Genitourinary: Denies: GERD, CRI, ESRD, other Neurologic/Psychiatric: Denies: dementia, CVA, depression/anxiety, TIA, other Endocrine: Denies: DM, hypothyroidism, steroids, other HEENT: Denies: cataract (L), cataract (R), glaucoma, SAVOONGA (L), SAVOONGA (R), other Hematology/Immune: Reports: other - sickle cell trait; Denies: anemia, DVT, bleeding disorder Other: obesity PSxH Narrative: none Anesthesia Pre-op Phys. Exam Physician Exam Last Vital Signs Date Time Temp Pulse Resp B/P (MAP) Pulse Ox O2 Delivery O2 Flow Rate FiO2 12/02/18 13:06 101.0 12/02/18 12:00 89 18 133/84 (100) 98 12/02/18 09:00 Room Air Constitutional: NAD Neurologic: CN 2-12 intact Cardiovascular: RRR Respiratory: CTA Gastrointestinal: S/NT/ND Airway Exam Mallampati Classification 2 Mallampati Score: Class II MO: full ROM: full Dentures: no upper, no lower Anesthesia Pre-op A/P Labs Hematology Test 12/02/18 05:45 White Blood Count 13.1 K/UL (4.8-10.8) #H Red Blood Count 4.72 M/UL (4.20-5.40) Hemoglobin 13.8 G/DL (12.0-16.0) Hematocrit 40.8 % (37.0-47.0) Mean Corpuscular Volume 87 FL (80-99) Mean Corpuscular Hemoglobin 29.4 PG (27.0-31.0) Mean Corpuscular Hemoglobin Concent 33.9 G/DL (32.0-36.0) Red Cell Distribution Width 12.6 % (11.6-14.8) Platelet Count 195 K/UL (150-450) Mean Platelet Volume 9.0 FL (6.5-10.1) Neutrophils (%) (Auto) 84.2 % (45.0-75.0) H Lymphocytes (%) (Auto) 8.4 % (20.0-45.0) L Monocytes (%) (Auto) 6.6 % (1.0-10.0) Eosinophils (%) (Auto) 0.1 % (0.0-3.0) Basophils (%) (Auto) 0.7 % (0.0-2.0) Chemistry Test 12/02/18 05:45 Sodium Level 139 MMOL/L (136-145) Potassium Level 3.4 MMOL/L (3.5-5.1) L Chloride Level 105 MMOL/L (98-107) Carbon Dioxide Level 23 MMOL/L (21-32) Anion Gap 11 mmol/L (5-15) Blood Urea Nitrogen 5 mg/dL (7-18) L Creatinine 0.7 MG/DL (0.55-1.30) Estimat Glomerular Filtration Rate > 60 mL/min (>60) Glucose Level 170 MG/DL (74-106) H Calcium Level 8.7 MG/DL (8.5-10.1) Total Bilirubin 1.5 MG/DL (0.2-1.0) H Direct Bilirubin 0.3 MG/DL (0.0-0.3) Aspartate Amino Transf (AST/SGOT) 18 U/L (15-37) Alanine Aminotransferase (ALT/SGPT) 20 U/L (12-78) Alkaline Phosphatase 45 U/L (46-116) L Total Protein 7.5 G/DL (6.4-8.2) Albumin 3.3 G/DL (3.4-5.0) L Globulin 4.2 g/dL Albumin/Globulin Ratio 0.8 (1.0-2.7) L Studies Pre-op Studies: EKG - sr Risk Assessment & Plan Assessment: denies changes in health Plan: general Status Change Before Surgery: No Pre-Antibiotics Drug: none Tianna Tello CRNA Dec 02, 2018 15:50
[2018-12-02] MEDS ORDERED: fentaNYL 100 mcg/2 mL IV PRN (16:00)
--- NOTE | 2018-12-02 17:05 | NUR ---
NURSE NOTES: patient came back to unit after surgery. received report from THIAGO Frost. alert. oriented. verbally responsive. no respiratory distress noted. o2 2l/min via NC. no pain at this time. surgical site with dressing intact. no bleeding noted. IV on RAC 18g. resume D5NS 100/hr as ordered. new prescription by Dr. paula upon discharge in patient chart. encourage using IS. start clear liquid diet and upgrade to regular if patient tolerates well. vs 114/80/89, 99.3, 99%, 19 will continue to monitor post surgery.
[2018-12-02] MEDS: Docusate 100mg cap ORAL SCH (17:47)
--- NOTE | 2018-12-02 18:00 | Consultation ---
DATE OF CONSULTATION: 12/02/2018 INFECTIOUS DISEASES CONSULTATION CONSULTING PHYSICIAN: Marium Sanches M.D. REQUESTING PHYSICIAN: Lucero Kirkland M.D. REASON FOR CONSULTATION: Acute cholecystitis with fever and leukocytosis. Recommendation for antimicrobial treatment. HISTORY OF PRESENT ILLNESS: The patient is a 48-year-old female with past medical history significant for asthma presented to [facility] emergency room with right upper quadrant abdominal pain. This started about 24 hours before presentation to the emergency room. Her pain has been on and off and she had similar pain like this before in the past which was attributed to cholecystitis. The patient's pain is dull ache, deep 10/10, worse with food, gets better with fasting. Her pain is associated with nausea and vomiting. No fever or chills. No cough or shortness of breath. No chest pain. No diarrhea. The patient had ultrasound of the abdomen which showed a thickened gallbladder wall with pericolic fluid and positive Bhatt sign so she was started on Zosyn empirically for acute cholecystitis with possible complication and Infectious Diseases consultation was requested for antibiotics treatment and further management. REVIEW OF SYSTEMS: A 14-point of system reviewed were all negative apart from the one I mentioned above in my History and Physical. PAST MEDICAL HISTORY: Significant for asthma and cholecystitis in the past. PAST SURGICAL HISTORY: Not on record. FAMILY HISTORY: Not contributory. SOCIAL HISTORY: She lives at home with family. Denied using any drugs, tobacco, or alcohol. ALLERGIES: No known drug allergy. MEDICATIONS: She is on Zosyn currently. For the rest of her medications, please refer to MAR. LABORATORY DATA: Labs showed white count of 13.1, hemoglobin of 13.8, and platelet count of 195,000. BUN of 5 creatinine of 0.7. AST of 18, ALT of 20. Urinalysis showed moderate amount of squamous cells, 2 to 4 red blood cells, 1 ketone, + 3 blood. IMAGING: Abdominal ultrasound showed cholelithiasis, gallbladder wall thickening and pericholecystic fluid. There is concern for acute cholecystitis, chronic and clinical findings. PHYSICAL EXAMINATION: VITAL SIGNS: Temperature 100.9, pulse 89, respirations 18, blood pressure 133/84, saturation 98% on room air. GENERAL: A middle-aged female, lying in bed, awake, alert, with mild discomfort in the right upper quadrant, no acute distress. HEENT: Normocephalic, atraumatic. Pupils reactive to light equally. Moist oral mucosa. No exudate. NECK: Supple. No lymphadenopathy. CARDIOVASCULAR: Regular rate and rhythm. No murmur or gallop. LUNGS: Clear bilaterally. No wheezing or rhonchi. Normal breathing effort. ABDOMEN: Soft, nondistended. Normal bowel sounds. No hepatosplenomegaly. . She had right upper quadrant discomfort and tenderness with positive Bhatt sign. EXTREMITIES: No edema or cyanosis. SKIN: No rash. No hives. ASSESSMENT AND RECOMMENDATION: 1. Acute cholecystitis with possible complication. Continue Zosyn for now. Recommend surgical resection as soon as possible for source control. We will send blood culture. Monitor liver function tests. 2. Sepsis with fever suspect due to the above. Continue Zosyn. We will send blood culture to rule out bacteremia, needs surgical resection. 3. Abdominal pain due to the above. Continue pain management as per primary. 4. Fever while on Zosyn, may need cholecystectomy for source control. We will send blood culture. Continue Tylenol as needed. Thank you for the consult. ID will continue to follow. Marium Sanches M.D. DR: Ej JOB#: [id number] CC:
--- NOTE | 2018-12-02 18:30 | Operative Note - Dictated ---
DATE OF OPERATION: 12/02/2018 PREOPERATIVE DIAGNOSIS: Acute cholecystitis. POSTOPERATIVE DIAGNOSIS: Acute cholecystitis. OPERATION PERFORMED: Laparoscopic cholecystectomy. ATTENDING SURGEON: Glen Duke M.D. CLINICAL LABORATORY MEDICAL DIRECTOR: None. ANESTHESIOLOGIST: . ANESTHESIA: General BULLDOZER/LOADER/COMPACTOR/SCRAPER plus local. ESTIMATED BLOOD LOSS: Minimal. IV FLUIDS: Please see anesthesia records. COMPLICATIONS: None. DRAINS: None. WOUND CLASSIFICATION: Class III. SPECIMENS: Gallbladder and contained stones sent to pathology for review. COUNTS: Sponge and needle count correct x2. INDICATIONS FOR PROCEDURE: This is a 48-year-old female who presented to [facility] complaining of worsening right upper quadrant abdominal pain with associated nausea and emesis. The patient was admitted for evaluation, care, and management. On examination, the patient was identified to have positive Bhatt sign. On imaging, the patient was identified to have a gallbladder with wall thickening and pericholecystic fluid and cholelithiasis consistent with acute cholecystitis. The patient was initially treated with medical management, but then on IV antibiotics began to spike fevers and have a worsening leukocytosis. Given these findings, surgery was indicated and recommended. Risks, benefits, and alternatives discussed with the patient in detail, expressed understanding, and consented for surgery. OPERATIVE NOTE: The patient was taken to the operating room and placed on the operating table in supine position with bilateral arms out. All bony prominences well padded. SCDs were placed. Preoperative time-out taken to identify the patient, procedure, operative staff, and surgical staff. General anesthesia was induced. The patient was intubated. The abdomen was clipped, prepped, draped in standard surgical fashion. Local anesthetic was infiltrated throughout the procedure for the patient's comfort. An infraumbilical incision was made using a fresh #11 scalpel and carried down to the fascia, which was elevated and incised. Entry into the abdomen was obtained using open Celia technique without complication. A 12 mm Celia trocar was inserted and the abdomen was insufflated to 12 to 15 mmHg. The patient tolerated the insufflation well. Laparoscope was inserted and the abdomen was inspected. No injury from initial trocar placement noted. The patient was placed in reverse Trendelenburg with left side down. Secondary trocars placed under direct visualization beginning with a 12 mm subxiphoid followed by two 5 mm right subcostal. No injury from secondary trocars was noted. The omentum overlying the gallbladder was inflammatory and gently dissected down. The gallbladder was identified, noted to be injected red, distended, and unable to be grasped. A laparoscopic needle was used and the gallbladder was decompressed. The black decompressed fluid was sent off to field. The gallbladder was grasped using the dome and retracted over the liver. Of note, there were some liver peritoneal attachments that required electrocautery division so that the liver capsule does not tear. The infundibulum was identified and noted to be inflammatory with acute inflammation and edema noted. The infundibulum was grasped and retracted to the right lower quadrant. Gentle dissection allowed us to identify the critical view with the cystic duct and artery. The only two structures entering were these two and it was a short duct identified with the common duct below it, which could be noted. Care was taken throughout the procedure to ensure no injury to the common duct. The cystic artery was then doubly clipped and divided. The artery was noted to be pulsatile once divided. Fortunately, good hemostasis was identified with the clips. Following this, only structure entering into the gallbladder infundibulum was a cystic duct. Cystic duct was doubly clipped and divided and identified to be a single small ductal structure. Following this, gallbladder was removed off the liver bed using electrocautery. Gallbladder was placed in endoscopic retrieval bag and removed from the abdomen using subxiphoid port. The hemostasis was achieved from liver bed with electrocautery. Both duct and artery clips were identified and no leakage or bleeding was identified. The right upper quadrant was irrigated and suctioned until clear. Once stable and no other intervention necessary, we began conclusion of our procedure. Secondary trocars were removed under direct visualization followed by the umbilical trocar site. The abdomen was desufflated. The umbilical trocar site and subxiphoid trocar site fascia were reapproximated using [id number] #0 Vicryl sutures. The remaining skin incisions were reapproximated using 4-0 Monocryl subcuticular interrupted sutures. All skin incisions were cleansed and skin glue and Steri-Strips were applied. The patient tolerated the procedure well, was extubated, and taken to postanesthetic care unit in stable condition. Glen Susanne Duke DR: JUNE JOB#: [id number] CC:
--- NOTE | 2018-12-02 19:28 | NUR ---
HAND-OFF: Report given to THIAGO Mcdaniel.
--- NOTE | 2018-12-02 19:30 | NUR ---
NURSE NOTES: Received report from THIAGO Bush. Patient awake, alert, and verbally responsive to let her needs known. Acknowledged significant other at the bedside. Breathing unlabored and evenly without distress, discomfort, or sob on room air. Tender pain noted around the surgical area. Will follow up per protocol and continue to monitor. IV site noted on the right AC intact and running fluid as ordered. Abdominal surgical sites noted with intact dressing. Patient verbalize tolerating the diet well without sensation of nausea or need to vomit. Incentive spirometer noted at the bedside. Patient able to ambulate to the restroom with minimal help to stand up. SCDs on bilateral lower extremities while on bed. Call light placed within reach and encouraged to press if needed. Will continue to monitor and provide care as ordered.
--- NOTE | 2018-12-02 20:21 | NUR ---
CASE MANAGEMENT: REVIEW SI: ACUTE CHOLECYSTIS LAPAROSCOPIC CHOLECYSTECTOMY 12/02 T 99.1 HR 94 RR 21 BP 117/76 SAT 99% NC/3L WBC 13.1 K 3.4 GLUCOSE 170 IS: COLACE PO BID MORPHINE IV Q4HR PRN FENTANYL IV X1 ZOFRAN IV X1 ZEMURON IV X1 START CLEAR LIQUID DIET MED/SURG STATUS DCP: PATIENT IS FROM HOME
[2018-12-03] VITALS (7 sets, daily range): BP systolic 99–158; BP diastolic 66–85
[2018-12-03] MEDS: D5NS 1,000 ML IV SCH ×3 (03:45→23:45)
--- NOTE | 2018-12-03 05:13 | NUR ---
NURSE NOTES: Previous IV on right AC infiltrated, leaking fluid and pt verbalized pain. Insert new 22g IV on left wrist. Explained patient procedure before and during the process. Patient tolerated procedure well. New IV site intact, dry, clean, and patent. Good blood draw back and flush well without resistance. Old IV site dc'd. Will continue to monitor and provide care as ordered.
[2018-12-03] MEDS: Morphine Sulfate 2mg/ml Inj(IV/IM USE ONLY) IVP PRN (05:33)
[2018-12-03] MEDS: Piperacillin/Tazobactam 3.375 GM in NS 110 ML IVPB SCH ×3 (05:39→21:49)
--- NOTE | 2018-12-03 08:06 | NUR ---
NURSE NOTES: Pt resting in bed. complained of abd pain, 06/26. 4 lap sites steri-strips on , CDI. no flatus, encourage to ambulate. Temp 101.6f this am, encourage to use IS, ice packs , light cover. will notify Refused SCD am. Clear liquid, tolerating well. no N/V. bed alarm on. call light within reach. will continue to monitor. Addendum: 12/03/18 at 0830 by Aydee Dejesus RN rechecked temp , pts temp 98.2f oral, will continue to monitor. Addendum: 12/03/18 at 0949 by Aydee Dejesus RN BS present, encourage to ambulate, no BM, no flatus.
--- NOTE | 2018-12-03 08:34 | NUR ---
HAND-OFF: Report given to THIAGO Bajwa. Patient in stable condition.
[2018-12-03 08:37] LABS: BASOPHILS % (AUTO) 0.6 % (0.0-2.0); EOSINOPHILS % (AUTO) 0.8 % (0.0-3.0); HEMATOCRIT 38.1 % (37.0-47.0); HEMOGLOBIN 12.6 G/DL (12.0-16.0); LYMPHOCYTES % (AUTO) 18.8 % (20.0-45.0); MEAN CORPUSCULAR VOLUME 87 FL (80-99); MONOCYTES % (AUTO) 6.3 % (1.0-10.0); NEUTROPHILS % (AUTO) 73.6 % (45.0-75.0); PLATELET COUNT 183 K/UL (150-450); RED BLOOD COUNT 4.37 M/UL (4.20-5.40); RED CELL DISTRIBUTION WIDTH 12.9 % (11.6-14.8); WHITE BLOOD COUNT 8.1 K/UL (4.8-10.8)
[2018-12-03] MEDS: Docusate 100mg cap ORAL SCH ×2 (09:00→18:00)
[2018-12-03 09:01] LABS: ALANINE AMINOTRANSFERASE 30 U/L (12-78); ALBUMIN 2.8 G/DL (3.4-5.0); ALBUMIN/GLOBULIN RATIO 0.7 (1.0-2.7); ALKALINE PHOSPHATASE 42 U/L (46-116); ANION GAP 8 mmol/L (5-15); ASPARTATE AMINO TRANSFERASE 32 U/L (15-37); BILIRUBIN,TOTAL 1.4 MG/DL (0.2-1.0); BLOOD UREA NITROGEN 3 mg/dL (7-18); CALCIUM 8.6 MG/DL (8.5-10.1); CARBON DIOXIDE 25 MMOL/L (21-32); CHLORIDE 111 MMOL/L (98-107); CREATININE 0.7 MG/DL (0.55-1.30); POTASSIUM 3.1 MMOL/L (3.5-5.1); SODIUM 144 MMOL/L (136-145)
[2018-12-03 09:10] LABS: BILIRUBIN,DIRECT 0.3 MG/DL (0.0-0.3)
[2018-12-03] MEDS: Heparin 5000 units/ml inj SUBQ SCH ×2 (09:14→21:52)
[2018-12-03] MEDS: Pantoprazole Inj IVP SCH (09:15)
--- NOTE | 2018-12-03 10:05 | General Surgery Progress Note ---
General Surgery-Progress Note Subjective Day of Surgery: POD 1. I am covering for Dr. Duke Procedure Performed laparoscopic cholecystectomy Symptoms: improved Additional Comments has some abd pain but feels better overall today, denies n/v, tolerating clear liquid diet, +mild KEVIN Objective Last 24 Hour Vital Signs Date Time Temp Pulse Resp B/P (MAP) Pulse Ox O2 Delivery O2 Flow Rate FiO2 12/03/18 09:03 99.0 12/03/18 09:00 Room Air 12/03/18 08:15 98.8 90 17 108/68 (81) 99 12/03/18 08:00 101.6 93 18 106/66 (79) 98 12/03/18 04:00 99.0 90 18 102/68 (79) 98 12/03/18 00:00 98.8 98 19 99/68 (78) 98 12/02/18 21:00 Room Air 12/02/18 20:00 99.5 92 18 106/76 (86) 97 12/02/18 16:51 99.1 12/02/18 16:50 99.1 94 21 117/76 99 Nasal Cannula 3 12/02/18 16:35 82 17 109/73 100 Nasal Cannula 3 12/02/18 16:21 80 16 116/78 100 Nasal Cannula 3 12/02/18 16:10 90 16 114/75 100 Nasal Cannula 3 12/02/18 16:00 87 19 124/71 100 Simple Mask 6 12/02/18 15:50 88 18 124/72 100 Simple Mask 6 12/02/18 15:49 86 14 98 12/02/18 15:45 79 17 115/71 100 Simple Mask 6 12/02/18 15:40 97.6 88 14 116/73 100 Simple Mask 6 12/02/18 13:06 101.0 12/02/18 12:00 100.9 89 18 133/84 (100) 98 I&O Intake and Output 12/02/18 12/03/18 19:00 07:00 Intake Total 2100 ml 1317.5 ml Output Total 110 ml 40 ml Balance 1990 ml 1277.5 ml Intake Oral 480 ml IV Total 2100 ml 837.5 ml Output Urine Total 100 ml Emesis 30 ml Estimated Blood Loss 10 ml 10 ml # Voids 2 Dressing: other Wound: clean, dry, intact - incisions c/d/i with steristrips in place Drains: none Cardiovascular: RSR Respiratory: other - breathing easily on RA Abdomen: soft, other - appropriately tender to palpation, slightly distended Laboratory Tests Test 12/03/18 05:44 White Blood Count 8.1 K/UL (4.8-10.8) Red Blood Count 4.37 M/UL (4.20-5.40) Hemoglobin 12.6 G/DL (12.0-16.0) Hematocrit 38.1 % (37.0-47.0) Mean Corpuscular Volume 87 FL (80-99) Mean Corpuscular Hemoglobin 28.9 PG (27.0-31.0) Mean Corpuscular Hemoglobin Concent 33.1 G/DL (32.0-36.0) Red Cell Distribution Width 12.9 % (11.6-14.8) Platelet Count 183 K/UL (150-450) Mean Platelet Volume 8.4 FL (6.5-10.1) Neutrophils (%) (Auto) 73.6 % (45.0-75.0) Lymphocytes (%) (Auto) 18.8 % (20.0-45.0) L Monocytes (%) (Auto) 6.3 % (1.0-10.0) Eosinophils (%) (Auto) 0.8 % (0.0-3.0) Basophils (%) (Auto) 0.6 % (0.0-2.0) Sodium Level 144 MMOL/L (136-145) Potassium Level 3.1 MMOL/L (3.5-5.1) L Chloride Level 111 MMOL/L (98-107) H Carbon Dioxide Level 25 MMOL/L (21-32) Anion Gap 8 mmol/L (5-15) Blood Urea Nitrogen 3 mg/dL (7-18) L Creatinine 0.7 MG/DL (0.55-1.30) Estimat Glomerular Filtration Rate > 60 mL/min (>60) Glucose Level 93 MG/DL (74-106) Calcium Level 8.6 MG/DL (8.5-10.1) Total Bilirubin 1.4 MG/DL (0.2-1.0) H Direct Bilirubin 0.3 MG/DL (0.0-0.3) Aspartate Amino Transf (AST/SGOT) 32 U/L (15-37) Alanine Aminotransferase (ALT/SGPT) 30 U/L (12-78) Alkaline Phosphatase 42 U/L (46-116) L Total Protein 6.8 G/DL (6.4-8.2) Albumin 2.8 G/DL (3.4-5.0) L Globulin 4.0 g/dL Albumin/Globulin Ratio 0.7 (1.0-2.7) L Assessment Post-op Diagnosis 48yo F POD 1 s/p laparoscopic cholecystectomy, recovering well Plan Additional Comments -ok to advance diet as tolerated to regular -ambulate -ok to shower tomorrow but do not submerge wounds in water: no swimming, no baths -please leave steristrips in place, they will fall off on their own -no heavy lifting Brenda Hayes MD Dec 03, 2018 10:04
--- NOTE | 2018-12-03 11:03 | 48 Hour Post Anesthesia Eval ---
Post Anesthesia Evaluation Procedure: lap liza Date of Evaluation: Dec 03, 2018 Time of Evaluation: 11:03 Blood Pressure Systolic: 120 0: 50 Pulse Rate: 70 Respiratory Rate: 14 O2 Sat by Pulse Oximetry: 98 Airway: patent Nausea: No Vomiting: No Hydration Status: adequate Cardiopulmonary Status: stable Mental Status/LOC: patient returned to baseline Post-Anesthesia Complications: none Follow-up care needed: N/A Tianna Tello CRNA Dec 03, 2018 11:03
--- NOTE | 2018-12-03 18:49 | Infectious Diseases Prog Note ---
Assessment/Plan Problems: (1) Acute cholecystitis Assessment & Plan: continue zosyn for now , S/P surgical resection of the gall bladder , monitor LFT (2) Sepsis Assessment & Plan: suspect due to the above, continue zosyn, . monitor blood culture x2 (3) Abdominal pain Assessment & Plan: due to the above, continue pain management as per primary (4) Fever Assessment & Plan: while on zosyn , S/P cholecystectomy for source control, will send blood culture , continue tylenol as needed Subjective Constitutional: Reports: no symptoms HEENT: Reports: no symptoms Respiratory: Reports: no symptoms Breasts: Reports: no symptoms Cardiovascular: Reports: no symptoms Gastrointestinal/Abdominal: Reports: constipation, bloating Genitourinary: Reports: no symptoms Neurologic: Reports: no symptoms Psychiatric: Reports: no symptoms Skin: Reports: no symptoms Endocrine: Reports: no symptoms Hematologic: Reports: no symptoms Musculoskeletal: Reports: no symptoms Allergies: Coded Allergies: No Known Allergies (Unverified , 05/26/15) Objective Vital Signs Last 24 Hour Vital Signs Date Time Temp Pulse Resp B/P (MAP) Pulse Ox O2 Delivery O2 Flow Rate FiO2 12/03/18 16:00 100.9 99 17 158/85 (109) 94 12/03/18 12:00 98.4 75 17 118/73 (88) 99 12/03/18 11:03 70 14 98 12/03/18 09:03 99.0 12/03/18 09:00 Room Air 12/03/18 08:15 98.8 90 17 108/68 (81) 99 12/03/18 08:00 101.6 93 18 106/66 (79) 98 12/03/18 04:00 99.0 90 18 102/68 (79) 98 12/03/18 00:00 98.8 98 19 99/68 (78) 98 12/02/18 21:00 Room Air 12/02/18 20:00 99.5 92 18 106/76 (86) 97 Height (Feet): 5 Height (Inches): 6.00 Weight (Pounds): 180 General Appearance: WD/WN, no acute distress HEENT: normocephalic, atraumatic, anicteric, mucous membranes moist, PERRL Respiratory/Chest: chest wall non-tender, lungs clear, normal breath sounds, no respiratory distress, no accessory muscle use Cardiovascular: normal peripheral pulses, normal rate, regular rhythm, no gallop/murmur, no JVD Abdomen: no mass, absent bowel sounds, distended, tender Genitourinary: normal external genitalia Extremities: no cyanosis, no clubbing Skin: no rash, no lesions Neurologic/Psychiatric: alert, responsive Lymphatic: no neck adenopathy, no groin adenopathy Musculoskeletal: normal muscle bulk, no effusion Laboratory Tests Test 12/03/18 05:44 White Blood Count 8.1 K/UL (4.8-10.8) Red Blood Count 4.37 M/UL (4.20-5.40) Hemoglobin 12.6 G/DL (12.0-16.0) Hematocrit 38.1 % (37.0-47.0) Mean Corpuscular Volume 87 FL (80-99) Mean Corpuscular Hemoglobin 28.9 PG (27.0-31.0) Mean Corpuscular Hemoglobin Concent 33.1 G/DL (32.0-36.0) Red Cell Distribution Width 12.9 % (11.6-14.8) Platelet Count 183 K/UL (150-450) Mean Platelet Volume 8.4 FL (6.5-10.1) Neutrophils (%) (Auto) 73.6 % (45.0-75.0) Lymphocytes (%) (Auto) 18.8 % (20.0-45.0) L Monocytes (%) (Auto) 6.3 % (1.0-10.0) Eosinophils (%) (Auto) 0.8 % (0.0-3.0) Basophils (%) (Auto) 0.6 % (0.0-2.0) Sodium Level 144 MMOL/L (136-145) Potassium Level 3.1 MMOL/L (3.5-5.1) L Chloride Level 111 MMOL/L (98-107) H Carbon Dioxide Level 25 MMOL/L (21-32) Anion Gap 8 mmol/L (5-15) Blood Urea Nitrogen 3 mg/dL (7-18) L Creatinine 0.7 MG/DL (0.55-1.30) Estimat Glomerular Filtration Rate > 60 mL/min (>60) Glucose Level 93 MG/DL (74-106) Calcium Level 8.6 MG/DL (8.5-10.1) Total Bilirubin 1.4 MG/DL (0.2-1.0) H Direct Bilirubin 0.3 MG/DL (0.0-0.3) Aspartate Amino Transf (AST/SGOT) 32 U/L (15-37) Alanine Aminotransferase (ALT/SGPT) 30 U/L (12-78) Alkaline Phosphatase 42 U/L (46-116) L Total Protein 6.8 G/DL (6.4-8.2) Albumin 2.8 G/DL (3.4-5.0) L Globulin 4.0 g/dL Albumin/Globulin Ratio 0.7 (1.0-2.7) L Current Medications Medications (Trade) Dose Ordered Sig/Celso Route PRN Reason Start Time Stop Time Status Last Admin Dose Admin Acetaminophen (Tylenol) 650 mg Q4H PRN ORAL FEVER 12/02/18 15:45 01/01/19 15:44 Acetaminophen/ Hydrocodone Bitart (Bath 10/325) 1 tab Q4H PRN ORAL Severe Pain (Pain Scale 7-10) 12/02/18 15:45 12/09/18 15:44 12/03/18 08:33 Acetaminophen/ Hydrocodone Bitart (Bath 5/325) 1 tab Q4H PRN ORAL Moderate Pain (Pain Scale 4-6) 12/02/18 15:45 12/09/18 15:44 Al Hydroxide/Mg Hydroxide (Mylanta) 15 ml Q6H PRN ORAL DYSPEPSIA 12/02/18 15:45 01/01/19 15:44 Dextrose/Sodium Chloride 1,000 ml @ 100 mls/hr Q10H IV 12/01/18 11:45 12/31/18 11:44 12/03/18 13:37 Diphenhydramine HCl (Benadryl) 25 mg Q8H PRN ORAL Itching/Pruritis 12/02/18 15:45 01/01/19 15:44 Docusate Sodium (Colace) 100 mg TWICE A DAY ORAL 12/02/18 18:00 01/01/19 17:59 12/02/18 17:47 Heparin Sodium (Porcine) (Heparin 5000 units/ml) 5,000 units EVERY 12 HOURS SUBQ 12/01/18 21:00 12/31/18 20:59 12/03/18 09:14 Iopamidol (Isovue-300 100ml) 100 ml NOW PRN INJ Radiology Procedure 12/01/18 04:45 Magnesium Hydroxide (Mom) 30 ml BIDPRN PRN ORAL Constipation 12/02/18 15:45 01/01/19 15:44 Metoclopramide HCl (Reglan) 10 mg Q6H PRN IVP Nausea & Vomiting 12/02/18 15:45 01/01/19 15:44 Morphine Sulfate (Morphine Sulfate) 1 mg Q4H PRN IVP pain scale 1-3 12/02/18 15:45 12/09/18 15:44 12/03/18 05:33 Morphine Sulfate (Morphine Sulfate) 2 mg Q4H PRN IVP pain scale 4-6 12/02/18 15:45 12/09/18 15:44 Morphine Sulfate (Morphine Sulfate) 4 mg Q4H PRN IVP pain score 7-10 12/02/18 15:47 12/09/18 15:46 Ondansetron HCl (Zofran) 4 mg Q4H PRN IVP Nausea & Vomiting 12/01/18 11:30 12/31/18 11:29 12/02/18 06:00 Pantoprazole (Protonix) 40 mg DAILY IVP 12/02/18 09:00 01/01/19 08:59 12/03/18 09:15 Piperacillin Sod/ Tazobactam Sod 3.375 gm/Sodium Chloride 110 ml @ 27.5 mls/hr EVERY 8 HOURS IVPB 12/01/18 14:00 12/06/18 13:59 12/03/18 13:37 Marium Sanches M.D. Dec 03, 2018 18:49
--- NOTE | 2018-12-03 19:10 | NUR ---
HAND-OFF: Report given to Caroline DAS.
--- NOTE | 2018-12-03 19:35 | General Progress Note ---
Assessment/Plan Assessment/Plan: S: I am feeling better O: seems comfortable, PHYSICAL EXAMINATION:HEAD AND NECK: Atraumatic and normocephalic. CHEST: Clear to auscultation.HEART: S1, S2. Regular rate and rhythm. ABDOMEN: small clean sites of laparotomies are noted.NEUROLOGIC: Awake, alert , and oriented x3. LABORATORY DATA: Labs dated 12/01/2018 reviwed Meds: reviewed an reconciled ASSESSMENT: 1. Acute cholecystitis , post lap liza 2. Asthma. 3. Abnormal blood glucose. 4. GI and DVT prophylaxes. PLAN OF CARE: D/W with the surgeon ok to fu as o/p Subjective Allergies: Coded Allergies: No Known Allergies (Unverified , 05/26/15) Objective Last 24 Hour Vital Signs Date Time Temp Pulse Resp B/P (MAP) Pulse Ox O2 Delivery O2 Flow Rate FiO2 12/03/18 16:00 100.9 99 17 158/85 (109) 94 12/03/18 12:00 98.4 75 17 118/73 (88) 99 12/03/18 11:03 70 14 98 12/03/18 09:03 99.0 12/03/18 09:00 Room Air 12/03/18 08:15 98.8 90 17 108/68 (81) 99 12/03/18 08:00 101.6 93 18 106/66 (79) 98 12/03/18 04:00 99.0 90 18 102/68 (79) 98 12/03/18 00:00 98.8 98 19 99/68 (78) 98 12/02/18 21:00 Room Air 12/02/18 20:00 99.5 92 18 106/76 (86) 97 Intake and Output 12/02/18 12/03/18 18:59 06:59 Intake Total 2100 ml 1417.5 ml Output Total 110 ml 40 ml Balance 1990 ml 1377.5 ml Intake Oral 480 ml IV Total 2100 ml 937.5 ml Output Urine Total 100 ml Emesis 30 ml Estimated Blood Loss 10 ml 10 ml # Voids 2 Laboratory Tests 12/03/18 05:44: White Blood Count 8.1, Red Blood Count 4.37, Hemoglobin 12.6, Hematocrit 38.1, Mean Corpuscular Volume 87, Mean Corpuscular Hemoglobin 28.9, Mean Corpuscular Hemoglobin Concent 33.1, Red Cell Distribution Width 12.9, Platelet Count 183, Mean Platelet Volume 8.4, Neutrophils (%) (Auto) 73.6, Lymphocytes (%) (Auto) 18.8L, Monocytes (%) (Auto) 6.3, Eosinophils (%) (Auto) 0.8, Basophils (%) (Auto ) 0.6, Sodium Level 144, Potassium Level 3.1L, Chloride Level 111H, Carbon Dioxide Level 25, Anion Gap 8, Blood Urea Nitrogen 3L, Creatinine 0.7, Estimat Glomerular Filtration Rate > 60, Glucose Level 93, Calcium Level 8.6, Total Bilirubin 1.4H, Direct Bilirubin 0.3, Aspartate Amino Transf (AST/SGOT) 32, Alanine Aminotransferase (ALT/SGPT) 30, Alkaline Phosphatase 42L, Total Protein 6.8, Albumin 2.8L, Globulin 4.0, Albumin/Globulin Ratio 0.7L Height (Feet): 5 Height (Inches): 6.00 Weight (Pounds): 180 Lucero Kirkland MD Dec 03, 2018 19:35
--- NOTE | 2018-12-03 20:09 | NUR ---
NURSE NOTES: Received report from THIAGO Bajwa. Patient AAO x 4. Breathing unlabored without distress, discomfort, or sob. Verbalized mild headache. Will follow up. Temperature of 100.2 noted. Will follow up. IV on the left wrist noted running fluid as ordered. Abdominal surgical sites noted intact, dry, and clean. SCDs are off, patient refused. Bed placed at the lowest with alarm, brake, and side rails up for safety. Call light placed within reach. Will continue to monitor and provide care as ordered.
--- NOTE | 2018-12-03 20:33 | NUR ---
NURSE NOTES: Fluctuating temperature noted. During report 100.9, rechecked 100.2, Temperature for vital sign at 1999, 101.4, rechecked 99.7. Called Dr. Kirkland to inform about the temperature and patient's preference on time of discharge. Dr. Kirkland confirmed okay to carry out discharge order for 12/04/18 tomorrow AM. Also, reached Dr. Duke to inform about the fluctuating temperature. Waiting for call back. Will continue to monitor and provide care as ordered.
--- NOTE | 2018-12-03 21:15 | NUR ---
NURSE NOTES: Received call back from Dr. Brenda Hayes covering for Dr. Duke. Informed about the fluctuating temperature as previously noted. Last temperature was 99.7. Dr. Hayes made aware of patient's condition. No new orders given to follow up. Will continue to monitor and provide care as ordered.
[2018-12-04] VITALS: BP 109/75
[2018-12-04 04:00] VITALS: BP 114/62
[2018-12-04] MEDS: Piperacillin/Tazobactam 3.375 GM in NS 110 ML IVPB SCH (05:46)
--- NOTE | 2018-12-04 07:39 | NUR ---
NURSE NOTES: Pt resting in bed. Denies pain. 4 Lap sites , CDI. tolerating diet well. no n/V. passing flatus, no BM. possible dc home am per order. bed alarm on, call light within reach. will continue to monitor.
--- NOTE | 2018-12-04 07:57 | General Surgery Progress Note ---
General Surgery-Progress Note Subjective Procedure Performed laparoscopic cholecystectomy Symptoms: improved Additional Comments pain controlled, denies n/v, tolerating PO but not very hungry, has been drinking a lot of juice and water though, febrile o/n, resolved Objective Last 24 Hour Vital Signs Date Time Temp Pulse Resp B/P (MAP) Pulse Ox O2 Delivery O2 Flow Rate FiO2 12/04/18 04:00 97.8 66 18 114/62 (79) 99 12/04/18 00:00 98.9 87 18 109/75 (86) 96 12/03/18 21:50 98.9 12/03/18 21:00 Room Air 12/03/18 20:30 99.7 12/03/18 20:00 101.4 91 19 115/77 (90) 98 12/03/18 19:30 100.2 12/03/18 16:00 100.9 99 17 158/85 (109) 94 12/03/18 12:00 98.4 75 17 118/73 (88) 99 12/03/18 11:03 70 14 98 12/03/18 09:03 99.0 12/03/18 09:00 Room Air 12/03/18 08:15 98.8 90 17 108/68 (81) 99 12/03/18 08:00 101.6 93 18 106/66 (79) 98 I&O Intake and Output 12/03/18 12/04/18 19:00 07:00 Intake Total 2622.5 ml 1970.0 ml Output Total 40 ml Balance 2622.5 ml 1930.0 ml Intake Oral 1940 ml 1460 ml IV Total 682.5 ml 510.0 ml Emesis 30 ml Estimated Blood Loss 10 ml # Voids 6 2 # Bowel Movements 1 1 Wound: clean, dry, intact Drains: none Cardiovascular: RSR Respiratory: other - breathing easily on RA Abdomen: soft, non-tender, non-distended Extremities: no edema Assessment Post-op Diagnosis 48yo F POD 2 s/p laparoscopic cholecystectomy, recovering well Plan Additional Comments -diet as tolerated -light activity as tolerated, no heavy lifting -ok to shower but do not submerge wounds in water: no swimming, no baths -ok for d/c from surgical perspective Brenda Hayes MD Dec 04, 2018 07:57
[2018-12-04 08:00] VITALS: BP 117/66
--- NOTE | 2018-12-04 08:00 | NUR ---
HAND-OFF: Report given to THIAGO Bajwa.
[2018-12-04] MEDS: D5NS 1,000 ML IV SCH (08:39)
[2018-12-04 08:41] LABS: BASOPHILS % (AUTO) 1.1 % (0.0-2.0); EOSINOPHILS % (AUTO) 2.4 % (0.0-3.0); HEMATOCRIT 35.1 % (37.0-47.0); HEMOGLOBIN 11.8 G/DL (12.0-16.0); LYMPHOCYTES % (AUTO) 31.1 % (20.0-45.0); MEAN CORPUSCULAR VOLUME 87 FL (80-99); MONOCYTES % (AUTO) 6.1 % (1.0-10.0); NEUTROPHILS % (AUTO) 59.2 % (45.0-75.0); PLATELET COUNT 176 K/UL (150-450); RED BLOOD COUNT 4.02 M/UL (4.20-5.40); RED CELL DISTRIBUTION WIDTH 12.6 % (11.6-14.8)
[2018-12-04] MEDS: Docusate 100mg cap ORAL SCH (08:41)
[2018-12-04] MEDS: Pantoprazole Inj IVP SCH (08:42)
[2018-12-04] MEDS: Heparin 5000 units/ml inj SUBQ SCH (08:43)
[2018-12-04 09:03] LABS: ALANINE AMINOTRANSFERASE 26 U/L (12-78); ALBUMIN 2.3 G/DL (3.4-5.0); ALBUMIN/GLOBULIN RATIO 0.6 (1.0-2.7); ALKALINE PHOSPHATASE 42 U/L (46-116); ANION GAP 6 mmol/L (5-15); ASPARTATE AMINO TRANSFERASE 21 U/L (15-37); BILIRUBIN,TOTAL 1.1 MG/DL (0.2-1.0); BLOOD UREA NITROGEN 1 mg/dL (7-18); CALCIUM 8.4 MG/DL (8.5-10.1); CARBON DIOXIDE 26 MMOL/L (21-32); CHLORIDE 108 MMOL/L (98-107); CREATININE 0.6 MG/DL (0.55-1.30); POTASSIUM 3.3 MMOL/L (3.5-5.1); SODIUM 140 MMOL/L (136-145)
[2018-12-04 09:16] LABS: BILIRUBIN,DIRECT 0.2 MG/DL (0.0-0.3)
--- NOTE | 2018-12-04 11:43 | NUR ---
NURSE NOTES: Pt stable condition, 4 lap sites , CDI. VS stable, afebrile, pain 2/10, refused pain med. family notified regarding dc. belongings and prescription with pt. discharge instruction given with follow up appt to see MD, verbalize understanding. waiting for her ride.
[2018-12-04 12:00] VITALS: BP 120/75
--- NOTE | 2018-12-05 12:49 | Discharge Summary ---
Discharge Summary Discharge Summary _ DATE OF ADMISSION: 12/01/2018 DATE OF DISCHARGE: 12/04/2018 DISCHARGED BY: Dr Kirkland REASON FOR ADMISSION: 48 years old female with past medical history of asthma cholecystitis presented with acute onset of right upper quadrant abdominal pain for the last for 1 day. Upon evaluation vital signs were stable. She denied nausea vomiting no hemoptysis laboratory work-up revealed no leukocytosis stable hemoglobin hematocrit. Urinalysis +1 protein +1 ketones no evidence of urinary tract infection urine test was negative. Potassium 3.3. Glucose 173. Stable other parameters electrolytes. Troponin negative. Stable LFT urine toxicology screen negative EKG reveals sinus bradycardia with heart rate 58 no acute ischemic changes patient subsequently abdominal ultrasound demonstrated cholelithiasis. Gallbladder wall thickening and pericholecystic fluid with concern for acute cholecystitis. No other acute or significant abnormality. Patient received antiemetic and started on empiric antibiotic and admitted to medical surgical floor with diagnosis of acute cholecystitis CONSULTANTS: ID specialist Dr Sanches surgery Dr. Duke [facility] COURSE: Patient admitted to medical surgical floor. Surgery consult was requested. Patient was kept n.p.o. and started on the IV fluids and empiric antibiotic. Patient initially was on conservative medical management with IV antibiotics. Pain management was addressed. Symptomatic treatment provided. Patient subsequently next day developed leukocytosis and fever. Bilirubin yfn to 1.5 from normal. Given this findings, surgery was indicated and recommended. Patient subsequently undergone laparoscopic cholecystectomy . Course of recovery was uneventful. Patient slowly started on liquid diet and was advanced as tolerated. Pain management was addressed. Antiemetic provided as needed. Antibiotic continued. Patient was on DVT and GI prophylaxis. Supplemental oxygen provided as needed to keep pulse oximetry above 92%. Pulmonary toilet via handheld nebulizing therapy with bronchodilator was on board as needed. No evidence of asthma exacerbation. Renal parameters and electrolytes were closely monitored. Potassium replaced. Bowel regimen instituted. Blood culture were negative. Leukocytosis and fevers resolved. Diet was slowly advanced , and patient was able to tolerate diet. Surgeon cleared patient for discharge . Discharge instruction provided. Continue light activity as tolerated, but no heavy lifting. Patient given clearance to shower , but no submerging wounds in the water , no swimming , no bath. Patient was stable for discharge home. FINAL DIAGNOSES: Sepsis Acute cholecystitis Abdominal pain, likely due to acute cholecystitis Status post laparoscopic cholecystectomy Asthma DISCHARGE MEDICATIONS: See Medication Reconciliation list. DISCHARGE INSTRUCTIONS: Patient was discharged home . Follow up with primary care provider in one week. I have been assigned to dictate discharge summary for this account. I was not involved in the patient's management. [place] NP Dec 05, 2018 12:49
--- NOTE | 2018-12-05 19:56 | Cardiology Report ---
APPROVED REPORT EKG Measurement Heart [id number] Sinus bradycardia Otherwise normal ECG
--- NOTE | 2018-12-16 00:32 | Coder Physician Query ---
Clarification is required for compliance, coding accuracy, and to reflect severity of illness for this patient Dear Dr. Kirkland Date 12/15/18 Vocational Instructor/CDS Name: YINA Mulligan Exercise your independent professional judgment when responding to query. Question asked do not imply a particular answer is desired/expected Clinical Documentation States: "Sepsis" documented in Discharge summary, consults, progress notes. The patient reported acute onset of the right upper quadrant abdominal pain for the last one day. The patient came to the emergency room, and initial vital signs shows normal and stable vital signs. afebrile, HD stable, no leukocytosis on admission. 12/02/18 WBC count elevelated on 2nd day of admission to 13.1 Sepsis with fever suspect due to the acute cholecystitis. Continue Zosyn. We will send blood culture to rule out bacteremia Blood culture were negative. Leukocytosis and fevers resolved. Was SEPSIS present on admission? [ ] Yes [ ] No [ ] Clinically undeterminable Lucero Kirkland M.D Date & time [facility]
== END 2018-12-04 12:32 | disposition home or self-care (01) | DRG 263 ==
LOC: EMR 04:46 → EDBEDREQ 05:40 → 4E 07:28 → EDBEDREQ 07:53
PROC: 0FT44ZZ Resection of Gallbladder, Percutaneous Endoscopic Approach (ICD-10-PCS; principal; 2018-12-02 14:30)
DX: K80.00 Calculus of gallbladder with acute cholecystitis without obstruction (principal); A41.9 Sepsis, unspecified organism; J45.909 Unspecified asthma, uncomplicated
CPT/HCPCS: 36415; 76700; 80053; 80307; 81003; 81025; 82248; 83690; 84484; 85025; 86850; 86900; 86901; 87040; 93005; 94003; 94150; 96361; 96365; 96375; 99285; J2250; J2405; J2710; J2765; J8499